=== PATIENT | female | born 1995 | race Caucasian/White ===

== ENCOUNTER 2016-07-03 22:01 | Emergency (ER) | payer OTHER ==
[~2016-07-03] VITALS: Ht 152.4 cm; Wt 43.2 kg
[2016-07-03 23:07] LABS: GLUCOSE,POINT OF CARE 139 MG/DL (70-110)
[2016-07-03] MEDS ORDERED: ACETAMINOPHEN 500 MG TABLET PO ONE (23:30)
[2016-07-03] MEDS ORDERED: IBUPROFEN 600 MG TABLET PO ONE (23:30)
[2016-07-04 03:34] VITALS: BP 101/64
== END 2016-07-04 03:54 | disposition home or self-care (01) ==
LOC: EMS 22:04
DX: R50.9 Fever, unspecified (principal); M54.5 Low back pain
CPT/HCPCS: 81025; 82962; 99283; 99284

== ENCOUNTER 2018-05-21 22:48 | Emergency (ER) | payer OTHER ==
[~2018-05-21] VITALS: Ht 152.4 cm; Wt 46.8 kg
[2018-05-21] MEDS ORDERED: INSU100I26 SQ ×2 (23:15)
[2018-05-21] MEDS ORDERED: ATOR40TA28 PO (23:15)
[2018-05-21] MEDS ORDERED: INSU100V36 SQ ×2 (23:15)
[2018-05-21] MEDS ORDERED: LEVO100 PO (23:15)
[2018-05-22 00:48] VITALS: BP 117/74
== END 2018-05-22 00:50 | disposition home or self-care (01) ==
LOC: EMS 22:51
DX: E10.9 Type 1 diabetes mellitus without complications (principal); E78.00 Pure hypercholesterolemia, unspecified; E03.9 Hypothyroidism, unspecified; Z76.0 Encounter for issue of repeat prescription; Z79.4 Long term (current) use of insulin

== ENCOUNTER 2024-12-04 14:39 | Emergency (ER) | payer OTHER ==
[~2024-12-04] VITALS: Ht 152.4 cm; Wt 43.1 kg
[~2024-12-04 14:39] MED LIST: ATOR40TA28 PO; INSU100I26 SQ; INSU100V36 SQ; LEVO100 PO
[2024-12-04 16:25] VITALS: TEMP 97.9
[2024-12-04 16:39] LABS: COVID AG,FIA SOURCE NASAL SWAB
[2024-12-04 16:41] LABS: PLATELET COUNT (AUTO) 423 K/uL (150-450); RED BLOOD CELL COUNT(AUTO) 3.58 MIL/uL (4.00-5.20); RED CELL DISTRIBUTION WIDTH 13.1 % (11.5-14.5); WHITE BLOOD COUNT (AUTO) 10.1 K/uL (4.5-11.0)
[2024-12-04 16:48] LABS: CALCIUM, TOTAL 8.9 mg/dL (8.8-10.5); CREATININE 3.85 mg/dL (0.60-1.30); GLOMERULAR FILTR. RATE CALC 14.0 mL/min (>60); GLUCOSE,RANDOM 82.0 mg/dL (70-110); SODIUM SERUM 138.0 mmol/L (136-145); UREA NITROGEN, BLOOD 47.0 mg/dL (7-18)
[2024-12-04 16:58] LABS: APPEARANCE,URINE CLEAR (CLEAR); GLUCOSE, URINE (UA) 70-100 mg/dL (NEGATIVE); LEUKOCYTE ESTERASE ,URINE SMALL (NEGATIVE); NITRATE,URINE NEGATIVE (NEGATIVE); OCCULT BLOOD,URINE TRACE (NEGATIVE); PH,URINE DRUG SCREEN 6.5 (5.0-8.0); SPECIFIC GRAVITIY, URINE 1.011 (1.003-1.030)
[2024-12-04 17:05] LABS: ALCOHOL, URINE DRUG SCREEN NEGATIVE (NEGATIVE); AMPHET/METH SCREEN,URINE NEGATIVE (NEGATIVE); BARBITURATE SCREEN, URINE NEGATIVE (NEGATIVE); CANNABINOID SCREEN,URINE POSITIVE (NEGATIVE); COCAINE SCREEN,URINE NEGATIVE (NEGATIVE); METHADONE SCREEN, URINE NEGATIVE (NEGATIVE)
[2024-12-04 17:08] LABS: SARS-COV2 (COVID) ANTIGEN,FIA Negative (Negative)
[2024-12-04 17:30] LABS: SULFOSALICYLIC ACID,URINE 4+ (Negative)
[2024-12-04 17:32] LABS: SQUAMOUS EPITHELIAL CELL,UR Moderate /LPF (None Seen)
[2024-12-04] MEDS ORDERED: LISI-894 PO (17:47)
[2024-12-04] MEDS ORDERED: ISOS-58 PO (17:47)
[2024-12-04] MEDS ORDERED: METO-296 PO (17:47)
[2024-12-04] MEDS ORDERED: CARV25 PO (17:47)
[2024-12-04] MEDS ORDERED: CLON1PAT14 TD (17:47)
[2024-12-04] MEDS ORDERED: ONDA-104 PO (17:47)
[2024-12-04] MEDS ORDERED: AMLO-258 PO (17:47)
[2024-12-04] MEDS ORDERED: HYDR50TA36 PO (17:47)
[2024-12-04] MEDS ORDERED: CHOL200059 PO (17:47)
[2024-12-04] MEDS ORDERED: CEPH-558 PO (18:25)
[2024-12-04] MEDS ORDERED: ATOR20TA PO (18:31)
[2024-12-04] MEDS ORDERED: LEVO125 PO (18:31)
[2024-12-04] MEDS: CefTRIAXone SODIUM 1 GM/VIAL IM ONE (18:34)
[2024-12-04] MEDS: LIDOCAINE/PF 1% 2 ML VIAL IM ONE (18:35)
[2024-12-04 19:25] VITALS: BP 130/88; PULSE 81; RESP 16; O2SAT 100
== END 2024-12-04 19:47 | disposition admitted as inpatient to this hospital (09) ==
LOC: EMS 14:39
DX: F32.9 Major depressive disorder, single episode, unspecified (principal); R45.851 Suicidal ideations; E03.9 Hypothyroidism, unspecified; E10.9 Type 1 diabetes mellitus without complications; E78.00 Pure hypercholesterolemia, unspecified; Z79.899 Other long term (current) drug therapy; Z20.822 Contact with and (suspected) exposure to COVID-19
CPT/HCPCS: 99285; 87426; 80048; 81001; 82962; 85025; 87086; 36415; 96372; 80307; G0480; J0696; J3490; 81002